=== PATIENT | female | born 1935 | race Caucasian/White ===

== ENCOUNTER 2019-05-01 14:44 | Inpatient (IN) | payer MEDICARE, OTHER ==
[~2019-05-01] VITALS: Ht 165.1 cm; Wt 83.0 kg
[2019-05-01] MEDS ORDERED: MIRALAX17 GM PO ×2 (14:56→15:51)
[2019-05-01] MEDS ORDERED: VITAMIN D34000 UNIT PO (14:58)
[2019-05-01] MEDS ORDERED: OMEPRAZOLE MAGN20 MG PO (14:58)
[2019-05-01] MEDS ORDERED: MIDODRINE HCL5 M1 PO (15:34)
[2019-05-01] MEDS ORDERED: ZOLOFT100 MG PO (15:36)
[2019-05-01] MEDS ORDERED: FLORINEF PO (15:38)
[2019-05-01] MEDS ORDERED: Oscal,Oyster S500 MG PO (15:38)
[2019-05-01] MEDS ORDERED: KEPPRA250 MG PO (15:39)
[2019-05-01] MEDS ORDERED: RISPERIDONE2 M2 PO (15:40)
[2019-05-01] MEDS ORDERED: ARICEPT10 M1 PO (15:43)
[2019-05-01] MEDS ORDERED: Nystatin Cream15 GM T (15:47)
[2019-05-01] MEDS ORDERED: POTASSIUM CHLO10 ME4 PO (15:48)
[2019-05-01] MEDS ORDERED: ASPIR LOW81 MG PO (15:48)
[2019-05-01] MEDS ORDERED: COUMADIN2 M1 PO (15:50)
[2019-05-01] MEDS ORDERED: LIPITOR10 MG PO (15:50)
[2019-05-01 21:30] VITALS: BP 146/72
--- NOTE | 2019-05-01 21:30 | NUR ---
a 83 year old F admitted via stretcher from the [facility] EMERGENCY DEPARTMENT as a voluntary ADMISSION PER POA, DOMINGO MICHAUD Arrived on unit at 2100. ALLERGIES: IVP DYE, LATEX,TOFRANIL,PCN. Vital signs are: [id number] 146/72. VERBAL CONSENT FOR ALL ADMISSION FORMS WAS RECEIVED PRIOR TO ADMISSION FROM [facility] Authorization For The Release of Medical Information, Clothing List, Consent to Voluntary Admission and Hospitalization, Consent and Release Forms/Receipt of Rights, Acknowledgement of Advance Directive Information, Behavioral Health Consent Form, and Informed Consent of Medications. Admitted under the services of Dr. JESUS SALEH,[facility]. A search was conducted and hazardous articles were removed. Client was oriented to the unit. TATIANA SANDHU
[2019-05-01 21:41] VITALS: BP 146/72
--- NOTE | 2019-05-02 00:01 | NUR ---
DR JOSHUA NOTIFIED OF MEDICAL CONSULT & MED REQ IS READY FOR REVIEW. SHE STATED TO PUT CONSULT UNDER DR DE LA ROSA.
--- NOTE | 2019-05-02 00:12 | NUR ---
DR SEARS ON UNIT TO SEE PT FOR MEDICAL CONSULT.
[2019-05-02 00:50] LABS: CREATININE 1.4 mg/dL (0.55-1.02); POTASSIUM 4.1 mmol/L (3.5-5.1)
--- NOTE | 2019-05-02 00:57 | NUR ---
24 HR chart check completed.
--- NOTE | 2019-05-02 05:04 | NUR ---
PT HAS BEEN SLEEPING QUIETLY PAST 2314.
[2019-05-02 07:20] LABS: BASO % 0.6 % (0.0-1.0); EOS # 0.2 10*3/uL (0.0-0.4); EOS % 2.5 % (1.0-4.0); HEMATOCRIT 38.9 % (37.0-47.0); HEMOGLOBIN 12.4 g/dl (12.0-16.0); LYMPH % 27.1 % (27.0-41.0); MEAN CELL VOLUME 97.5 fl (81.0-99.0); MEAN CORPUSCULAR HGB 31.1 pg (27.0-31.0); MEAN CORPUSCULAR HGB CONC 31.9 g/dl (33.0-37.0); MEAN PLATELET VOLUME 8.8 fl (9.6-12.3); MONO # 0.5 10*3/uL (0.1-1.0); MONO % 6.5 % (3.0-9.0); NEUT # 4.6 10*3/uL (2.3-7.9); NEUT % 62.9 % (47.0-73.0); PLATELET COUNT AUTOMATED 249 10*3/uL (130-400); RED BLOOD COUNT 3.99 10*6/uL (4.10-5.10); RED CELL DISTRI WIDTH 13.6 % (0-14.5); WHITE BLOOD COUNT 7.3 10*3/uL (4.8-10.8)
[2019-05-02 07:33] LABS: CREATININE 1.4 mg/dL (0.55-1.02); TOTAL PROTEIN 6.3 gm/dL (6.4-8.2)
[2019-05-02 07:40] LABS: THYROID STIM HORMONE (HS) 6.27 uIU/ml (0.358-4.75)
[2019-05-02 07:42] LABS: INTERNATIONAL NORM RATIO 6.4 (2.0-3.5)
--- NOTE | 2019-05-02 07:45 | NUR ---
CRITICAL LAB RESULT - INR 6.4 - RECIEVED FROM LAB. READ BACK AND VERIFIED WITH PT'S DATE OF . CALL PLACED TO AND MADE AWARE. STATES WE WILL CONTINUE TO HOLD COUMADIN.
--- NOTE | 2019-05-02 07:46 | NUR ---
DAISY [id number] Please refer to the physician's history and physical for past medical history, comorbid conditions, and allergies. Diagnosis: SCHIZOAFFECTIVE DISORDER Kofi Score: 13,MODERATE RISK WOUND DESCRIPTIONS: Wound Number: 1 red blanchable area noted to left breast measuring 0.5cm x 4.5cm x <0.1cm. Right breast measuring 0.5cm x 6.5cm x < 0.1cm. No musty odor noted at time of assessment. Patient unable to state how this happened. Patient eyes were rolling in the back of her head at time of assessment. This nurse notified nurse caring for patient at this time. Patient did stated to me that she was cold and tired before eye movements were noted. Surface the patient is resting on: Proform SKIN PREVENTION RECOMMENDATION: 1. Pressure redistribution support surface as appropriate 2. Elevate heels 3. Remove boots/TEDS every shift and reapply 4. Head of bed 30 degrees as tolerated 5. Assess nutrition and hydration 6. Manage moisture 7. Avoid the use of containment devices while in bed 8. Use absorptive products on surfaces limit layers of linens on bed 9. Turn and reposition every 1-2 hours in bed and every 1 hour in chair as tolerated 10. Weight shifts every 15 minutes while up in chair 11. Offloading with pillows or device to keep heels elevated off bed 12. Monitor skin at least every shift 13. Inspect under medical devices twice a day WOUND TREATMENT RECOMMENDATIONS: Cleanse bilateral breast with soap and water pat area dry then apply nystatin powder every 12 hours. D/C nystatin cream.
[2019-05-02 08:00] VITALS: BP 144/88; BP 159/83
--- NOTE | 2019-05-02 08:00 | NUR ---
CALL PLACED TO KEREN GARNER REGARDING DNR PAPERWORK. STATES THE DAUGHTER HAS SIGNED ONE, WAITING FOR PHYSICIAN TO SIGN THEN WILL FAX TO US. PROVIDED FAX NUMBER TO UNIT. AWAITING RECEIPT OF FAX.
--- NOTE | 2019-05-02 08:54 | NUR ---
PT RESTING IN BED WITH EYES CLOSED. RESPS EASY AND EVEN ON ROOM AIR. AROUSES EASILY TO VERBAL STIMULI. STATES "I'M SLEEPING". [facility] AT [facility].
[2019-05-02 09:07] LABS: VITAMIN D, 25-HYDROXY 64.3 ng/mL (30-100)
--- NOTE | 2019-05-02 09:22 | NUR ---
CALL PLACED TO PT'S DPOAH ELISSA GA TO VERIFY PT'S CODE STATUS. DISCUSSED DNRCCA VS DNRCC. DPOAH VOICES DESIRE FOR PT TO BE COMFORT CARE ONLY. CONVERSATION WITNESSED BY 2ND RN DAVID. [place] DNRCC FORM FILLED OUT WITNESSED BY 2ND RN.
[2019-05-02] MEDS ORDERED: MACROBID100 M1 PO (09:26)
--- NOTE | 2019-05-02 09:29 | NUR ---
Dr. Taylor notified of wound care recommendations.
--- NOTE | 2019-05-02 10:05 | NUR ---
Spoke with Gilberto Wintres at [facility]. Pt. is a Shelter Resident at the Assisted Living and can return at discharge. Gilberto states that point of contact is Idania Mcgregor [phone] and fax number [phone] for updates. Facility will provide transportation at discharge.
--- NOTE | 2019-05-02 10:14 | NUR ---
, AND ON UNIT TO SEE PT AT THIS TIME. DNRCC SIGNED BY PHYSICIAN. DISCUSSED DIET ORDER, DIET UPDATED BY . DISCUSSED ANTIBIOTIC NOT REORDERED WAS ORDERED AT [facility], ATB CONTINUED BY .
--- NOTE | 2019-05-02 10:55 | NUR ---
Call placed to pt's facility, [facility], spoke to pt's nurse Idania. Pt is well known to Idania as she has been there and taking care of her for several years. First confirmed pt's diet: pt is a regular diet, regular texture, thin liquids at facility. Nurse reports pt has recently been stating that she feels like some things are hard to swallow but they are unsure if this is true or if it is a delusion as she has not actually been observed by staff to be having any difficulty swallowing. Nurse also provided some additional information regarding pt: states that Cande has been on the assisted living wing of their facility for approximately 5 years, prior to that she had been living there on an independent living wing for at least 5 years prior to that. Idania states Cande has had a long history of psych issues and has had previous psych admissions dating as far back as age 19, as well as a hx of recieving ECT therapy. States pt is terrified of ever having to recieve ECT again. Nurse states recently pt has become more depressed, stating she only wants to stay in bed and sleep. Pt has also recently been fixated on the belief that she is and giving . Precious states pt has not ambulated independently for some time, but at baseline pt can self propel in w/c and transfer with 1 assist. Nurse states she is afriad of falling and has many other fears she gets fixated on. Idania states the pt's daughter has relayed to them that May has had many "unrealistic fears" all throughout her life. Nurse states that May refuses to brush her teeth for fear of the toothpaste causing cancer and that recently pt had touched her hand to her foot and then her mouth and became fearful that this would cause her to get cancer as well. They state she had a "break down" a few years ago and was hospitalized in a psychiatric facility in [place] for "months". Above information shared with social security specialist. Diet order updated, no meat and soft to chew foods per pt preference as she stated to this RN "I don't like meat". pt also told this RN she prefers soft foods. Speech eval ordered d/t reports of difficulty swallowing.
--- NOTE | 2019-05-02 11:41 | NUR ---
AM GROUP PT DID NOT ATTEND MORNING GROUP THERAPY. PT WAS A LATE ADMIT LAST NIGHT AND WAS STILL SLEEPING.
--- NOTE | 2019-05-02 12:17 | NUR ---
SPOKE WITH , DR STATES TO STRAIGHT CATH PT FOR URINALYSIS IF PT UNABLE TO PROVIDE CLEAN CATCH. WILL ATTEMPT AFTER LUNCH.
--- NOTE | 2019-05-02 13:22 | NUR ---
PT INCONTINENT OF URINE. URINALYSIS OBTAINED AT THIS TIME VIA STRAIGHT CATH PROCEDURE. STERILE TECHNIQUE UTILIZED. APPROX 600ML CLEAR YELLOW URINE OBTAINED. URINE SAMPLE LABELED AND SENT TO LAB VIA PHARMACY TUBE SYSTEM.
--- NOTE | 2019-05-02 13:22 | NUR ---
PHYSICAL THERAPY Screen recieved per intake notes pt is a custodial care resident at assisted living facility. Per notes has not amb independently in a long time primary mobility is w/c of which she self propels and is an assist x 1 to transfer. Spoke with [facility] nurse Steph regarding above, at present time pt is very lethargic not appropriate for activity. Ed nurse to cont to assess once pt's cognitive status improves and if from a decline in baseline as per above to consult PT. Jaylyn Flores PT
--- NOTE | 2019-05-02 14:47 | NUR ---
SPEECH THERAPY Orders received for bedside swallowing evaluation due to patient reports of difficulty swallowing and occassional coughing. Patient is a fpc resident of [facility] and arrived to [facility] from [facility]. Patient has medical history s/f schizoaffective disorder, anxiety, CVA, dementia, depression, GERD, HTN, CKD stage 3, and recurring falls. At patient's facility, she is on a regular diet with thin liquids. Per chart review, patient recently stated she feels some things are hard to swallow. She additionally reported preference of soft to chew foods and no meat. Multiple attempts to evaluate patient were made this afternoon, however patient reporting she did not wish to eat at the moment. Patient was interviewed at bedside, and endorsed occassional difficulty with swallowing solid food items, stating that they get stuck at times, indicating the area below thyroid cartilage. She additionally reported she coughs up small pieces of food at times, and that liquids help to reduce sticking sensation. Patient was pleasant and answered questions appropriately, however she appeared lethargic. Patient told clinican it was "an awkward time right now" when encouragement provided by self and nursing staff to participate in swallowing evaluation. Not able to evaluate patient's oropharyngeal swallow mechanism at this time. Will attempt at later time/date as appropriate. Thank you for your consultation. Natasha Velasco MA [facility] [employer] PRO[employer] MANAGER
[2019-05-02 14:57] LABS: BILIRUBIN NEGATIVE (NEGATIVE); BLOOD 2+ (NEGATIVE); CLARITY CLEAR (CLEAR); COLOR YELLOW (YELLOW); GLUCOSE NEGATIVE (NEGATIVE); KETONE 1+ (NEGATIVE); LEUKO ESTERASE NEGATIVE (NEGATIVE); NITRITE NEGATIVE (NEGATIVE); SPECIFIC GRAVITY 1.015 (1.005-1.030); UROBILINOGEN 0.2 E.U./dl (0.2-1.0)
[2019-05-02 14:58] LABS: BACTERIA TRACE; MUCOUS 3+; WBC 0-2 wbc/hpf (0-5)
--- NOTE | 2019-05-02 15:27 | NUR ---
Patient slept most of the day. When awake, pt was not willing to speak to this chief underwriter. Information for assessment was gathered from chart review and RN report. Left a voicemail for pt's daughter/DPOAHC Steph Terry requesting a return call. Will plan to meet with pt at another time.
--- NOTE | 2019-05-02 15:57 | NUR ---
P- PT NAPPING A MAJORITY OF THE SHIFT. EASILY AROUSABLE VIA VERBAL/TACTILE STIMULI. PT GUARDED, ISOLATIVE, MULTIPLE ATTEMPTS BY STAFF TO ENGAGE PT IN CONVERSATION OR ACTIVITY HAVE BEEN UNSUCCESSFUL. POOR PO INTAKE FOR MEALS THIS SHIFT. I- ORIENTATION, MOOD AND BEHAVIOR ASSESSED. ASSESSED PT FOR SI/HI, INTENT OR PLAN. ASSESSED PT FOR S/S HALLUCINATIONS, PARANOIA AND/OR DELUSIONS. MEDICATIONS ADMINISTERED PER PHYSICIAN'S ORDERS. ASSISTANCE WITH ADL CARE PROVIDED NEEDED. ENCOURAGED PT TO ATTEND AND PARTICIPATE IN GAMING MILIEU GROUPS AND ACTIVITIES. R- PT IS ALERT AND ORIENTED TO PERSON ONLY, OTHERWISE CONFUSED. MEMORY GAPS NOTED. RESPS EASY AND EVEN ON ROOM AIR. MOOD APPEARS DEPRESSED WITH FLAT AFFECT. SPEECH IS SOFT, COHERENT, ABLE TO ANSWER QUESTIONS WITHOUT DIFFICULTY AND MAKES NEEDS KNOWN. PT DENIES SI/HI, INTENT OR PLAN. PT DENIES HALLUCINATIONS, NO RESPONSE TO INTERNAL STIMULI NOTED. NO PARANOIA NOTED. PT HAS NOT VOICED ANY DELUSIONAL THOUGHTS THIS SHIFT. PT HAS BEEN CALM, PLEASANT AND COOPERATIVE WITH ALL AREAS OF CARE. MED COMPLIANT WITHOUT DIFFICULTY. PT HAS REFUSED BREAKFAST, TOOK ONLY A FEW BITES OF PUDDING FOR LUNCH. ALL FOOD OPTIONS OFFERED TO PT PT STATES "NO. I DON'T LIKE THAT". PO FLUIDS ENCOURAGED. PT DECLINED SPEECH EVALUATION DESPITE 2 ATTEMPTS BY SPEECH THERAPIST. PT STATES "NOW IS REALLY AN AKWARD TIME". PT MORE AWAKE THE DAY PROGRESSES, HOWEVER, PT CONTINUES TO DECLINE TO ENGAGE IN CONVERSATION WITH STAFF OUTSIDE OF SHORT RESPONSES. NO DISTRESS NOTED. P- PLAN TO CONTINUE CURRENT TREATMENT, CONTINUE TO MONITOR MOOD AND BEHAVIORS, PROVIDE APPROPRIATE REORIENTATION, REDIRECTION AND 1:1 NEEDED. CONTINUE TO ENCOURAGE MEDICATION COMPLIANCE WELL GROUP ATTENDANCE AND PARTICIPATION.
--- NOTE | 2019-05-02 16:50 | NUR ---
CALL PLACED TO REGARDING BP AT THIS TIME 150/92 HR 80, PT DUE TO RECIEVE MIDODRINE. STATES TO HOLD THIS DOSE.
[2019-05-02 16:55] VITALS: BP 150/92
--- NOTE | 2019-05-02 17:36 | NUR ---
PRIOR TO DINNER PT RANG CALL LIGHT. THIS RN AND MHW TO PT'S ROOM. PT STATES "I HAVE TO GO TO THE BATHROOM REAL REAL BAD". THIS RN AND MHW ASSISTED PT IN AMBULATING FROM BED TO TOILET, HEAVY 2 ASSIST PROVIDED FOR AMBULATION. PT CONTINENT AT THIS TIME OF URINE AND XLARGE BM. PT IS SITTING ON TOILET PT STATES TO THIS RN, "SO, DID I GIVE TODAY?" PROVIDED PT WITH REORIENTATION AND PRESENTED REALITY. PT ACCEPTS REALITY AND STATES "OH YEAH, I GUESS MY BABY DAYS ARE OVER. MY MIND KEEPS PLAYING TRICKS ON ME, AT LEAST THATS WHAT THE NURSES IN [place] SAID". PT CALM AT THIS TIME. PT ASKS "IS IT TIME FOR BREAKFAST?" REORIENTED PT THAT IT WAS DINNER TIME. PT THEN AMBULATED WITH HEAVY 2 ASSIST TO W/C AND TAKEN TO DINING ROOM FOR DINNER. PT PROVIDED WITH DINNER TRAY TO WHICH SHE STATES "THIS IS A REAL HEAVY BREAKFAST, I CAN'T EAT ALL THIS!" AGAIN ORIENTED IT WAS DINNER TIME, NOT BREAKFAST AND THAT PT HAD BEEN SLEEPING ON AND OFF A MAJORITY OF THE DAY. ENCOURAGED PT TO EAT WHAT SHE COULD. PT IS AWARE SHE IS IN THE HOSPITAL, ASKED WHEN SHE WOULD SEE THE DOCTOR AGAIN. PT ATE 15% OF DINNER. PO FLUIDS ENCOURAGED. PT TOOK 120CC WATER WITH EVENING MED PASS. PT ASKED TO RECLINE IN GERICHAIR, PT RECLINED AND WARM BLANKET PROVIDED. PT REMAINS IN DAY ROOM AT THIS TIME RESTING QUIETLY. NO DISTRESS NOTED.
--- NOTE | 2019-05-02 18:05 | NUR ---
SHIFT CHART CHECK COMPLETED.
[2019-05-02 19:36] VITALS: BP 139/73
--- NOTE | 2019-05-02 20:47 | NUR ---
24 HR chart check completed.
--- NOTE | 2019-05-02 22:13 | NUR ---
P-DEPRESSED, CONFUSION I-ENCOURAGE VENTILATION OF FEELIINGS & PROVIDE EMOTIONAL SUPPORT, ASSESS ORIENTATION, ADMINSITER MEDICATIONS, NOMITOR SLEEP. ASSIST WITH ADLS R-PT SAT IN THE DINING ROOM IN A ROCIO CHAIR & ATE SNACK INDEPENDENTLY. DEPRESSED MOOD WITH FLAT AFFECT. DOES STATE THAT SHE IS DEPRESSED. ALERT TO PERSON & NAME OF PRESIDENT. STATED THE YEAR IS 2057. SHORT TERM & PENITENTIARY MEMORY DEFICITS. STATED THAT SHE KNOWS SHE IS NOT . "HOW CAN THAT BE. I HAVNT BEEN WITH A MAN FOR 18 YEARS. BUT I AM A LITTLE CONFUSED TO WHY I THOUGHT THAT." REASSURRANCE PROVIDED. COMPLIANT TAKING MEDICATIONS CRUSHED & MIXED IN PUDDING. REQUIRES 2 STAFF ASSISTS FOR TRANSFERS & ADLS. P-CONTINUE TO MONITOR & PROVIDE PHYSICAL ASSISTANCE & EMOTIONAL SUPPORT NEEDED.
--- NOTE | 2019-05-03 04:29 | NUR ---
PT HAS RESTED QUIETLY IN BED SLEEPING FOR APPROX 5 HOURS WITH INTERMITTENT AWAKENINGS.
[2019-05-03 06:59] VITALS: BP 154/76
--- NOTE | 2019-05-03 07:00 | NUR ---
[facility]. UPDATE GIVEN.
[2019-05-03 09:32] VITALS: BP 154/76
--- NOTE | 2019-05-03 10:33 | NUR ---
AND ON UNIT TO SEE PT AT THIS TIME. MADE AWARE OF INR 3.0, MADE AWARE OF URINE CULTURE INDICATES NO BACTERIAL GROWTH, ALSO REVIEWED BLOOD PRESSURES SINCE ADMISSION. STATES OK TO CONTINUE PT'S MEDICATIONS: FLORINEF AND MIDODRINE ORDERED. ALSO REQUESTS THIS RN CONTACT [facility] AND ATTEMPT TO OBTAIN URINE CULTURE THAT WAS DONE IN THEIR ER PRIOR TO PT'S ADMISSION TO OUR UNIT.
--- NOTE | 2019-05-03 10:39 | NUR ---
CALL PLACED TO [facility], SPOKE TO ALEXYS IN THE LAB, REQUESTED URINE CULTURE RESULT, ALEXYS STATES "IT LOOKS LIKE IT'S STILL PENDING BUT I'LL SEND YOU WHAT I HAVE". FAX NUMBER TO UNIT PROVIDED. AWAITING FAX AT THIS TIME.
--- NOTE | 2019-05-03 11:00 | NUR ---
RECIEVED FAX FROM [facility], RESULT OF URINE CULTURE CALLED TO . PHONES UNIT BACK AND STATES THEY WILL D/C MACROBID.
--- NOTE | 2019-05-03 11:59 | NUR ---
AM GROUP/BOLIVIAN NEW YEAR PT IN ATTENDANCE AND PARTICIPATED TO BEST OF ABILITY. PT INSISTS SHE IS AND IS ABOUT TO DELIVER A BABY. REDIRECTION WORKS AT TIMES BUT PT BEGINS TALKING ABOUT BEING AGAIN. PT DID WORK ON A BOLIVIAN NEW COLORING PAGE AND EXPRESSED INTEREST IN HER INDIVIDUAL BOLIVIAN ZODIAC. PT WILL CONTINUE TO ATTEND AND PARTICIPATE IN FUTURE GROUP SESSIONS TO THE BEST OF PT ABILITY.
--- NOTE | 2019-05-03 13:46 | NUR ---
P- DEPRESSED MOOD, FLAT AFFECT, PERIODS OF INCREASED ANXIETY AND RESTLESSNESS, DELUSIONAL THOUGHT PROCESSES, SOMATIC COMPLAINTS I- ORIENTATION, MOOD AND BEHAVIORS ASSESSED. ASSESSED PT FOR SI/HI, INTENT OR PLAN. ASSESSED PT FOR S/S HALLUCINATIONS, PARANOIA AND/OR DELUSIONS. MEDICATIONS ADMINISTERED PER PHYSICIAN'S ORDERS. ASSISTANCE WITH ADL CARE PROVIDED NEEDED. ENCOURAGED PT TO ATTEND AND PARTICIPATE IN GAMING MILIEU GROUPS AND ACTIVITIES. R- PT IS ALERT AND ORIENTED TO PERSON, APPROXIMATE PLACE AND TIME, NOT ORIENTED TO SITUATION. PERIODS OF CONFUSION AND ST MEMORY GAPS NOTED. PT STATES SHE IS IN THE HOSPITAL, UNABLE TO STATE EXACTLY WHICH ONE, PT STATES "[place], MAYBE?". PT STATES THE YEAR "2009". PT REPORTS FEELING DEPRESSED, MOOD DOES PRESENT DEPRESSED WITH FLAT AFFECT. PT HAS PERIODS OF INCREASED ANXIETY AND RESTLESSNESS AT TIMES. PT CONTINUES TO VOICE DELUSIONAL THOUGHTS RELATED TO HER BELIEF THAT SHE IS AND DUE TO DELIVER A BABY SOON. REALITY HAS BEEN PRESENTED TO PT MULTIPLE TIMES THIS SHIFT IN REGARD TO THIS DELUSION. AFTER REALITY WAS PRESENTED ONE TIME THIS DATE PT STATES TO THIS NURSE "OH YEAH. YOU'RE RIGHT. I'M NOT . THANK YOU FOR REMINDING ME". HOWEVER, PT CONTINUES TO KEEP ASKING ABOUT THE AND FREQUENTLY. PT ALSO VOICES MULTIPLE VARIOUS SOMATIC COMPLAINTS, PT BECAME FIXATED THIS MORNING ON THE WAISTBAND OF HER PANTS BEING TOO TIGHT WHICH WAS SQUEEZING HER ESOPHAGUS. PT DISPLAYING NO S/S RESPIRATORY DISTRESS. OXYGENATION 97% ON ROOM WITH, RESPS EASY AND EVEN ON ROOM AIR. PANTS WERE CHANGED TO A LOOSER FITTING STYLE. PT THEN BEGAN CHANTING SOFTLY "PLEASE DR. MCCALLUM, PLEASE DR. MCCALLUM, SHOW ME HOW TO LOOSEN THEM NOW. PLEASE DR. MCCALLUM, PLEASE DR. MCCALLUM, SHOW ME HOW TO LOOSEN THEM NOW". PT REPEATED THIS PHRASE OVER AND OVER AGAIN FOR APPROXIMATELY 10 MINUTES. EVENTUALLY STAFF WAS ABLE TO DISTRACT PT AND ENGAGE HER IN A GROUP ACTIVITY DURING WHICH TIME SHE COLORED A PICTURE. PT DENIES SI/HI, INTENT OR PLAN. PT DENIES HALLUCINATIONS. NO RESPONSE TO INTERNAL STIMULI NOTED. PT IS MED COMPLIANT WITHOUT DIFFICULTY. NO ACUTE DISTRESS NOTED. PT RESTING QUIETLY RECLINED IN CHAIR AT THIS TIME PER HER REQUEST. P- PLAN TO CONTINUE CURRENT TREATMENT, CONTINUE TO MONITOR MOOD AND BEHAVIORS, PROVIDE APPROPRIATE REORIENTATION, REDIRECTION AND 1:1 NEEDED. CONTINUE TO ENCOURAGE MEDICATION COMPLIANCE WELL GROUP ATTENDANCE AND PARTICIPATION.
[2019-05-03 14:32] LABS: INTERNATIONAL NORM RATIO 2.7 (2.0-3.5)
--- NOTE | 2019-05-03 14:50 | NUR ---
NOTIFIED OF PT/INR RESULT. STATES SHE WILL DISCUSS WITH .
--- NOTE | 2019-05-03 15:51 | NUR ---
PM GROUP/ART/MUSIC PT IN ATTENDANCE BUT CHOOSES NOT TO PARTICIPATE STATING "I'VE DONE ENOUGH PAINTING AND CRAFTS" THIS [facility] OFFERS OTHER ACTIVITY'S BUT PT STATES "I JUST WANT TO GO HOME". PT MOVED OVER TO TABLE WITH THIS STAFF AND A PEER AND PT IS ABLE TO REMINISCE ABOUT FAVORITE HOLIDAYS, COLORS, ETC. PT EXPRESSES NO A.V. HALLUCINATIONS AT THIS TIME. PT WILL OCNITNUE OT ATTEND AN DPARTICIPATE IN FUTURE GROUP SESSIONS TO BEST OF PT ABILITY.
[2019-05-03 16:43] VITALS: BP 148/86
--- NOTE | 2019-05-03 16:43 | NUR ---
CALL PLACED TO MADE AWARE OF BP 148/86 AT THIS TIME. STATES OK TO GIVE FLORINEF AND MIDODRINE.
--- NOTE | 2019-05-03 17:45 | NUR ---
SHIFT CHART CHECK COMPLETED.
--- NOTE | 2019-05-03 18:05 | NUR ---
PT UP TO NURSE'S STATION, VOICING PARANOID DELUSIONS, PT STATES "THEY TOLD ME I'M SUPPOSED TO HAVE AN XRAY DONE TOMORROW TO CHECK MY HEAD. CAN YOU CHECK IT AND MAKE SURE I'M NOT GETTING ANY VALIDIUM WHEN I HAVE THE XRAY DONE? BECAUSE YOU KNOW, THAT VALIDIUM CAUSES BRAIN CANCER IN PEOPLE". ADVISED PT SHE WAS NOT SCHEDULED ANY XRAYS TO BE DONE, ONLY BLOODWORK TO ASSESS HER LEVELS FOR HER BLOOD THINNER. PT STATES "NO, I KNOW I'M HAVING AN XRAY DONE. CAN YOU PLEASE CALL DR. DALIA VOSS AT HOME AND ASK HIM ABOUT IT? I WON'T BE ABLE TO REST UNTIL YOU DO". ADVISED PT THERE IS NO DR.CARLOS VOSS ASSOCIATED WITH THIS HOSPITAL. PT STATES "WELL THATS OKAY. I'VE KNOWN HIM FOR YEARS. TELL HIM IT'S MAY JI CALLING". UNABLE TO REDIRECT OR REORIENT PT AT THIS TIME.
--- NOTE | 2019-05-03 21:25 | NUR ---
24 HR chart check completed.
--- NOTE | 2019-05-03 21:48 | NUR ---
P-DEPRESSED, CONFUSION, PARANOID DELUSIONS, INCREASED ANXIETY I-ENCOURAGE VENTILATION OF FEELIINGS & PROVIDE EMOTIONAL SUPPORT, ASSESS ORIENTATION, ADMINSITER MEDICATIONS, NOMITOR SLEEP. ASSIST WITH ADLS R-PT SAT IN THE DINING ROOM IN A ROCIO CHAIR & ATE SNACK. DEPRESSED MOOD WITH FLAT AFFECT. CONTINUES TO STATE THAT SHE IS DEPRESSED. INCREASED ANXIETY & VOICES PARANOID DELUSIONS STATING THAT SHE IS & GOING TO HAVE A BABY. UNRECEPTIVE TO PRESENTATION OF REALITY. MEDICATED WITH ATIVAN 1 MG PO @ 2113. ALERT TO PERSON & SOMEWHAT PLACE. SHORT TERM & SCRAP BALLER MEMORY DEFICITS. STATED THAT EVERYBODY KEEPS TELLING HER THAT SHE IS NOT BUT IS CONFUSED BECAUSE SHE BELIEVES SHE IS. TAKES MEDICATIONS CRUSHED & MIXED IN PUDDING. REQUIRES 2 STAFF ASSISTS FOR TRANSFERS & ADLS. INCONTINENT OF URINE. P-CONTINUE TO MONITOR & PROVIDE PHYSICAL ASSISTANCE & EMOTIONAL SUPPORT NEEDED.
--- NOTE | 2019-05-04 06:53 | NUR ---
ATIVAN HAS BEEN EFFECTIVE & PT HAS SLEPT PAST 2214.
[2019-05-04 08:04] LABS: INTERNATIONAL NORM RATIO 2.4 (2.0-3.5)
[2019-05-04 08:17] VITALS: BP 147/81
--- NOTE | 2019-05-04 08:50 | NUR ---
AND ON UNIT TO SEE PT AT THIS TIME. UPDATE GIVEN.
--- NOTE | 2019-05-04 18:01 | NUR ---
P- DEPRSSED MOOD, FLAT AFFECT, VOICE IS MONOTONE, PT CONTINUES TO VOICE DELUSIONS ABOUT BEING AND GIVING . INCREASED ANXIETY AT TIMES. I- ORIENTATION, MOOD AND BEHAVIORS ASSESSED. ASSESSED PT FOR SI/HI, INTENT OR PLAN. ASSESSED PT FOR S/S HALLUCINATIONS, PARANOIA AND/OR DELUSIONS. MEDICATIONS ADMINISTERED PER PHYSICIAN'S ORDERS. ASSISTANCE WITH ADL CARE PROVIDED NEEDED. ENCOURAGED PT TO ATTEND AND PARTICIPATE IN GAMING MILIEU GROUPS AND ACTIVITIES. R- PT IS ALERT AND ORIENTED TO PERSON, PLACE, APPROXIMATE TIME. NOT SITUATION. MEMORY GAPS NOTED. RESPS EASY AND EVEN ON ROOM AIR. MOOD IS DEPRESSED WITH FLAT AFFECT. MONOTONE VOICE. SPEECH IS SLOW, COHERENT, ABLE TO MAKE NEEDS KNOWN WITHOUT DIFFICULTY. PT DENIES SI/HI, INTENT OR PLAN. PT DENIES HALLUCINATIONS, NO RESPONSE TO INTERNAL STIMULI NOTED. PT SLEPT UNTIL APPROX 3PM THIS DATE, REFUSED AM MEDICATIONS WITH EXCEPTION OF KEPPRA AND EXELON PATCH. REFUSED 1PM KEPPRA. PT CONTINUES TO VOICE DELUSIONAL THOUGHTS ABOUT BEING AND ASKS STAFF TO ASSIST HER WITH GIVING TO A BABY. UNRECEPTIVE TO REALITY PRESENTATION THIS DATE. PT WITH PERIODS OF INCREASED ANXIETY AT TIMES, PT YELLS OUT IN A MONOTONE VOICE "NURSE, NURSE, NURSE" STAFF ATTEMPTS TO ASK PT WHAT SHE NEEDS SO SHE CAN BE ASSISTED, PT DOES NOT PROVIDE ANY SPECIFIC COMPLAINTS, PT STATES "I JUST CAN'T STAND IT ANY LONGER" BUT CONTINUES TO PROVIDE NONSPECIFIC COMPLAINTS DESPITE QUESTIONING BY STAFF. NO AGGRESSIVE BEHAVIORS NOTED. NO DISTRESS NOTED. P- PLAN TO CONTINUE CURRENT TREATMENT, CONTINUE TO MONITOR MOOD AND BEHAVIORS, PROVIDE APPROPRIATE REORIENTATION, REDIRECTION AND 1:1 NEEDED. CONTINUE TO ENCOURAGE MEDICATION COMPLIANCE WELL GROUP ATTENDANCE AND PARTICIPATION.
[2019-05-04 20:00] VITALS: BP 120/63
--- NOTE | 2019-05-04 20:43 | NUR ---
24 HR chart check completed.
--- NOTE | 2019-05-05 02:13 | NUR ---
P-DEPRESSED, CONFUSION, PARANOID DELUSIONS, INCREASED ANXIETY I-ENCOURAGE VENTILATION OF FEELIINGS & PROVIDE EMOTIONAL SUPPORT, ASSESS ORIENTATION, ADMINSITER MEDICATIONS, NOMITOR SLEEP. ASSIST WITH ADLS R-PT SAT IN THE DINING ROOM IN A ROCIO CHAIR & PICKED AT HER SNACK. DEPRESSED MOOD WITH FLAT AFFECT. CONTINUES TO STATE THAT SHE IS DEPRESSED. INCREASED ANXIETY & PARANOID STATEMENTS REGARDING BEING . UNRECEPTIVE TO REALITY PRESENTATION. ALERT TO PERSON. SHORT TERM & INTERMEDIATE MEMORY DEFICITS. TAKES MEDICATIONS CRUSHED & MIXED IN PUDDING. REQUIRES 2 STAFF ASSISTS FOR TRANSFERS & ADLS. INCONTINENT OF URINE. P-CONTINUE TO MONITOR & PROVIDE PHYSICAL ASSISTANCE & EMOTIONAL SUPPORT NEEDED.
--- NOTE | 2019-05-05 04:49 | NUR ---
Upon discharge recommend patient to follow up for wound care in outpatient setting continue current wound care orders at discharging facility.
--- NOTE | 2019-05-05 06:00 | NUR ---
PT HAS SLEPT THROUGHOUT THE NIGHT WITH A FEW INTERMITTENT AWAKENINGS FOR A TOTAL OF APPX 6 HOURS.
[2019-05-05 06:41] LABS: INTERNATIONAL NORM RATIO 2.6 (2.0-3.5)
[2019-05-05 07:43] VITALS: BP 116/65
--- NOTE | 2019-05-05 08:00 | NUR ---
Treatment Plan meeting was held with Dr. Langley, ANJELICA Rodney, RN, AT, COLLECTIONS REP-S and Repairer General in attendance. Plan for discharge at the end of the week. Pt. will return to [facility] at discharge.
--- NOTE | 2019-05-05 11:55 | NUR ---
NO AM GROUP THERAPY DUE TO NEW PT ASSESSMENTS
--- NOTE | 2019-05-05 12:35 | NUR ---
Spoke with Idania at [facility]. Advised of Possible dicharge at the end of the week. Clinical Updates faxed to Facility [phone].
--- NOTE | 2019-05-05 14:45 | NUR ---
SPEECH PATHOLOGY Patient was seen for clinical swallowing evaluation as per orders. She was seen during lunchtime meal. Patient was sitting in activity room with peers, feeding herself. During this encounter, patient only consumed soup with crackers and thin liquid. Patient displayed no overt difficulty with any item consumed. She ate slowly and in small bites/sips. Patient reported that at times she feels like food is sticking in her throat, but stated that it was not occurring at this time. Patient was encouraged to alternate liquid and solid when this feeling of globus occurs. Recommend she remain on present diet with continued use of safe swallow precautions. Short term follow up is recommended to ensure safety of swallow through education and adherence to swallowing precautions. Refer to report in [email or web address] for further information. Thank you for this referral. HIRA VALDERRAMA MSCCC-RETAIL SOLAR ADVISOR
--- NOTE | 2019-05-05 15:37 | NUR ---
Patient requested to meet with this writer technical publications. Pt expressed concern that all orders state that pt is to have CTs with no contrast. Pt stated that the contrast causes brain cancer and she needs to know if she ever had contrast. Pt then spoke of a radiologist at [facility] and that she needed to speak to him. Redirected pt and informed pt that this writer technical publications would confirm that pt's chart at [facility] has this stipulation documented. Reviewed chart and spoke with RN. Confirmed with pt that all CTs at [facility] will be with no contrast for pt. Pt appeared satisfied.
--- NOTE | 2019-05-05 15:44 | NUR ---
PM GROUP PT ATTENDED AFTERNOON GROUP THERAPY AND PARTICIPATED BY SOCIALIZING AND DOING A JIG SAW PUZZLE. PT EXPRESSED NO A.V. HALLUCINATIONS WHILE IN GROUP.
[2019-05-05 16:16] VITALS: BP 120/68
--- NOTE | 2019-05-05 18:01 | NUR ---
pt remains delusional, stating to medical doctor that she is having " problems". pt presented with reality. pt receptive to reality for short period of time. pt then becomes fixated on other things. frequent redirection and reality presentation required. will continue to reorient and present reality as appropriate. will continue to encourage medication compliance. will continue to monitor q15 min per policy.
[2019-05-05 19:54] VITALS: BP 107/68
--- NOTE | 2019-05-05 20:56 | NUR ---
EVENING/LEISURE SKILLS PT IN ATTENDANCE BUT DID NOT PARTICIPATE. PT COMPLAINING ABOUT SHOULDER AND HAND PAIN. PT'S NURSE INFORMED. PT EXPRESSED NO A.V HALLUCINATIONS AT THIS TIME AND WILL CONTINUE TO ATTEND AND PARTICIPATE IN GROUP TO BEST OF PT ABILITY.
--- NOTE | 2019-05-06 08:00 | NUR ---
Treatment plan meeting was held with Dr. Langley, ANJELICA Rodney, RN, AT, CRYSTAL GRINDER-S and Welfare Administrator in attendance. Plan for discharge when Stable. Pt. will return to [facility] at Discharge.
[2019-05-06 08:23] VITALS: BP 114/65
--- NOTE | 2019-05-06 09:56 | NUR ---
SPEECH PATHOLOGY Treatment attempted this am during breakfast meal. Patient was in activity room, sleeping with her head on the table. She was awakened by clinician but stated she did not want to eat at this time. Encouragment was provided but not helpful. Will attempt again at a later time. HIRA VALDERRAMA MSCCC-RIG SUPERINTENDENT
--- NOTE | 2019-05-06 10:24 | NUR ---
DR GRIDER ON UNIT TO ASSESS PT, UPDATE PROVIDED.
--- NOTE | 2019-05-06 11:50 | NUR ---
AM GROUP PT WAS PRESENT FOR MORNING GROUP THERAPY BUT CHOSE NOT TO PARTICIPATE AT FIRST. WHEN GROUP WAS ALMOST OVER PT ASKED, "WHY AM I IN THIS ROOM, WHAT AM I SUPPOSED TO DO?" PT WAS ENCOURAGED TO JOIN PEERS AT THE TABLE AND SOCIALIZE. PT DID AND WAS CONTENT TO TALK WITH PEERS. PT EXPRESSED NO HALLUCINATIONS WHILE IN GROUP
--- NOTE | 2019-05-06 12:22 | NUR ---
SPEECH PATHOLOGY Patient was seen for treatment this pm during lunchtime meal. She was sitting upright in a wheelchair in activity room with peers. Tray set up was provided and she was able to feed herself. She consumed solid foods and thin liquid. Patient displayed good use of safety precautions such eating slowly and taking small bites/sips. She displayed no overt difficulty with any item consumed. Intake was good. Recommend she remain on present diet. Continue therapy plan short term to ensure safe swallowing of diet. HIRA VALDERRAMA MSCCC-POLICE COMMISSIONER
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
--- NOTE | 2019-05-06 18:02 | NUR ---
P: PT MOOD IS DEPRESSED. PT ISOALTIVE TO SELF AT TIMES THROUGHOUT THE DAY. PT VOICES FEARS OF FALLING. PT WAS OBSERVED TO BE PICKING UNSEEN OBJECTS OFF HER CLEAN LUNCH PLATE. I: PROVIDE EMOTIONAL SUPPORT AND 1:1 FOR PT TO FEELINGS, ENCOURAGE MED COMPLIANCE AND PROVIDE MED EDUCATION, ENCOURAGE GROUP PARTICIPATION AND SOCIALIZATION. PREOVIDE REASSURANCE THAT PT IS SAFE. RE-ORIENT AND PRESENT REALITY. R: PT ALERT TO PERSON, PLACE AND TIME. PT PLEASANT WITH THIS NURSE AND OBSERVED TO BE SOCIALIZING WITH PEERS THROUGHOUT THE DAY. PT RECEPTIVE TO ASSURANCE OF SAFETY AT TIMES. STAFF PROVIDED RE-ORIENTATION AND PRESENTATION OF RELAITY. PT MED COMPLIANT WITH MINIMAL DIFFICULTY, MED EDUCATION PROVIDED. PT REQUIRES A STEPHIE LIFT FOR TRANSFERS AT THIS TIME, UP TO A GERICHAIR D/T PT REFUSING TO BEAR WEIGHT. PT CONTINENT OF BOWEL AND BLADDER, EPISODES OF INCONTINENCE NOTED, CARE PROVIDED NEEDED. P: PROVIDE EMOTIONAL SUPPORT AND 1:1 FOR PT TO VOICE FEELINGS, ENCOURAGE MED COMPLIANCE AND PROVIDE MED EDUCATION, RE-ORIENT AND PRESENT REALITY, ENCOURAGE GROUP PARTICIPATION AND SOCIALIZATION, PROVIDE REASSURANCE OF SAFETY.
--- NOTE | 2019-05-06 19:55 | NUR ---
24 HR chart check completed.
[2019-05-06 20:00] VITALS: BP 110/75
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
--- NOTE | 2019-05-06 23:44 | NUR ---
P-DEPRESSED, CONFUSION, PARANOID DELUSIONS, INCREASED ANXIETY I-ENCOURAGE VENTILATION OF FEELINGS & PROVIDE EMOTIONAL SUPPORT, ASSESS ORIENTATION,. PRESENT REALITY, ADMINISTER MEDICATIONS, MONITOR SLEEP. ASSIST WITH ADLS R-PT SAT IN THE DINING ROOM IN A WHEEL CHAIR DURING ACTIVITIES GROUP & KEPT TO HERSELF. MILIEU CAME TO RN & STATED THAT PT HAS A HOLD OF THERAPIST SWEATER & WONT LET GO. ATTEMPTED TO REDIRECT PT & SHE WS LEANING FORWARD IN THE WHEELCHAIR & HAD BOTH HANDS PULLING TIGHTLY ON ACTIVITY THERAPIST SWEATER. PT WOULD NOT LET GO DESPITE REDIRECTION. PT STATED, "IF I FALL. IT'S GONNA BE YOUR FAULT. ALL OF YOU". PT WAS TAKEN OUT OF DINING ROOM AWAY FROM GROUP. STAFF HELD ON TO PT & WHEELCHAIR PT WAS REFUSING TO LET GO OF SWEATER. PT ASSISTED TO A ROCIO CHAIR TAKING 3 STEPS WITH 3 STAFF ASSISTS. ALERT TO PERSON ONLY PT WOULD NOT ANSWER ORIENTATION QUESTIONS. PT BECAME ACCUSATORY & DEFENSIVE RESPONDING WITH "WHERE DO YOU THINK I AM? YOU KNOW WHERE I AM. I'M NOT TELLING YOU. I DON'T HAVE TO". UNRECEPTIVE TO REASSURANCE & CONTINUED STATING, "YOUR ALL LYING. EVERYONE HERE IS GETTING FIRED. I'LL MAKE SURE OF IT. YOU ALL LIVE IN YOUR [facility]." 3 STAFF PRESENT PT MADE ACCUSATIONS. PT CONTINUED VOICING PARANOID STATEMENTS & EVEN STATED THAT SHE WANTS THE LIGHTS LEFT ON BECAUSE OF "THE MONSTERS UNDER THE BED". ALLOWED PT TO VENT & STAFF REMAINED SILENT. EVENTUALLY ASK PT IS SHE WAS READY TO TAKE HER MEDICATIONS & OFFERED THEM TO HER WHOLE OR CRUSHED & IN PUDDING. SHE REQUESTED CRUSHED & WAS COMPLIANT TAKING THEM. MEDICATIED WITH PRN VISTARIL 50 MG PO @ 2024. AFTER A WHILE, PT THANKED STAFF FOR LISTENING TO HER & WAS ASSISTED TO THE TOILET BUT DID NOT GO. 2 STAFF ASSIST TO BED. ALSO MEDICATED WITH MOM 30 CC PO @ 2158. PT WAS NOTED TO BE SLEEPING @ 2214. P-CONTINUE TO MONITOR & PROVIDE PHYSICAL & EMOTIONAL SUPPORT NEEDED.
--- NOTE | 2019-05-07 05:35 | NUR ---
PT HAS SLEPT PAST 2214
[2019-05-07 08:00] VITALS: BP 144/87
--- NOTE | 2019-05-07 08:00 | NUR ---
Treatment Plan meeting was held with Dr. Langley, ANJELICA Rodney, RN, AT, SETUP OPERATOR-S and Auto Machinist in attendance. Plan for discharge next week. Pt. will return to [facility] where she is a Longterm Care Resident.
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
--- NOTE | 2019-05-07 12:33 | NUR ---
STAFF RETURNED FROM TOILETING PT VIA 3 STAFF ASSIST AND PT CONTINUES TO STATE "I HAVE TO GO TO THE BATHROOM". STAFF PROVIDED REASSURANCE THAT SHE WAS JUST TOILETED PT STATED "WELL I WASNT AND I DONT REMEMBER ". PT REMAINS ON Q2 HOURS TOILETING SCHEDULE.
--- NOTE | 2019-05-07 12:45 | NUR ---
SPEECH PATHOLOGY Patient was seen for treatment this pm during lunchtime meal. At start of encounter patient stated that she could not eat and requested removal of tray table as it was pressing on her stomach. Clinician moved table farther out and patient reported that she felt better, then with encouragement she was able to continue eating. She consumed a sandwich, mashed potatoes and grape juice. Patient displayed no overt diffiuclty with any item. She had reported that food felt like it was sticking earlier but she thought it was due to the tray table pressing against her. She had no further c/o globus and displayed no cough, residue or wet vocal quality. Continue plan short term. HIRA VALDERRAMA MSCCC-CHILDREN'S INSTITUTION ATTENDANT
--- NOTE | 2019-05-07 14:00 | NUR ---
Spoke with Idania MAR at [facility]. Advised of plans to discharge next week. Clinical Updates faxed to Facility.
--- NOTE | 2019-05-07 15:41 | NUR ---
P: PT PARANOID AND FIXATED ON CT CONTRAST STATING "YOU KNOW THAT STUFF THEY GIVE YOU FOR THE XRAYS, I HOPE THEY DONT GIVE IT TO ME, I HAVE ALLERGIES." PT CONTINUOUSLY ASKING TO GO HOME.PT MOOD IS ANXIOUS. PT ARGUEMENTATIVE WITH STAFF. I: PROVIDE EMOTIONAL SUPPORT AND 1:1 FOR PT TO VOICE FEELINGS, REASSURE PT THAT SHE IS NOT ORDERED ANY XRAYS OR CT SCANS AND IF SHE IS THEY WILL NOT GIVE THE CONTRAST D/T LISTED ALLERGY, ENCOURAGE MED COMPLIANCE AND PROVIDE MED EDUCATION, ENCOURAGE GROUP PARTICIPATION AND SOCIALIZATION R: PT ALERT TO PERSON, PLACE AND TIME. PT MED COMPLIANT WITHOUT DIFFICULTY, MED EDUCATION PROVIDED. PT REMAINS FIXATED ON CT CONTRAST AT THIS TIME. PT CONTINUES TO ASK TO LEAVE. PT REMAINS INTERMITTENLTY ANXIOUS. PT UP TO A GERICHAIR TO PRMOTE PROPER POSITIONING. PT REQUIRES A STEPHIE LIFT FOR TRANFERS D/T REFUSING TO BEAR WEIGHT AT TIMES. PT CONTINENT OF BOWEL AND BLADDER, EPISODES OF INCONTINENCE NOTED, CARE PROVIDED NEEDED. P: MONITOR PT BEHAVIORS ON Q15 MIN SAFETY CHECKS, ENCOURAGE GROUP PARTICIAPTION AND SOCIALIZATION, CONTINUE TO PROVIDE REASSURANCE THAT PT WILL NOT RECEIVE CT CONTRAST, PROVIDE EMOTIONAL SUPPORT AND 1:1 FOR PT TO VOICE FEELINGS.
--- NOTE | 2019-05-07 15:45 | NUR ---
PM GROUP/WATERCOLORS AND MUSIC PT WAS PRESENT FOR AFTERNOON GROUP THERAPY RECLINED IN A ROCIO CHAIR SLEEPING. PT DID NOT WAKE DURING GROUP.
--- NOTE | 2019-05-07 16:15 | NUR ---
SPOKE WITH DR. OBYD, ADVSIED THAT PT HAS NOT VOIDED IN 12 HOURS AND HAS CONSUMED AROUND 600CC OF FLUIDS. PER DR. BOYD SHE WILL PLACE ORDERS.
--- NOTE | 2019-05-07 16:50 | NUR ---
PT ST CATHED FOR 350 CC DARK YELLOW URINE, UA COLLECTED AND SENT TO LAB. PT TOELRTED WITHOUT ISSUE.
[2019-05-07 17:15] LABS: BILIRUBIN NEGATIVE (NEGATIVE); BLOOD TRACE-INTACT (NEGATIVE); CLARITY CLEAR (CLEAR); COLOR YELLOW (YELLOW); GLUCOSE NEGATIVE (NEGATIVE); KETONE NEGATIVE (NEGATIVE); LEUKO ESTERASE 1+ (NEGATIVE); NITRITE NEGATIVE (NEGATIVE); UROBILINOGEN 0.2 E.U./dl (0.2-1.0)
[2019-05-07 17:16] LABS: BACTERIA TRACE
[2019-05-07 19:46] VITALS: BP 126/66
--- NOTE | 2019-05-08 05:37 | NUR ---
SLEPT PAST 2214
[2019-05-08 07:36] VITALS: BP 154/80
--- NOTE | 2019-05-08 08:00 | NUR ---
Treatment plan meeting was held with Dr. Langley, RN, AT and Instructor Nurse. Plan for discharge Early next week with return to [facility]. Advised Dr. Langley that Facility had requested that Physical Therapy Continue to work with patient due to decline. Pt. was transferring herself with 1 standby Assist to Her Wheelchair and Toilet at the Assisted Nursing Facility.
--- NOTE | 2019-05-08 11:51 | NUR ---
AM GROUP PT WAS PRESENT FOR MORNING GROUP THERAPY RECLINED IN A ROCIO CHAIR SLEEPING. PT DID NOT WAKE DURING GROUP.
--- NOTE | 2019-05-08 12:53 | NUR ---
PT ABLE TO ANSWER PERSON, PLACE, TIME, PRESIDENT QUESTIONS. CONFUSION NOTED AT TIMES. HOPELESS AND HELPLESS, DEPRESSED MOOD. NO HALLUCINATIONS OR DELUSIONS NTOED. PT HAS NOT MADE ANY ACCUSATIONS AT THIS TIME. 3 ASSIST DUE TO PAST ACCUSATIONS. MEDICATION COMPLIANT WITHOUT DIFFICULTY. UNABLE TO EDUCATE ON MEDICATIONS DUE TO CONFUSION. BEHAVIORS MONITORED WITH Q15 MINUTE SAFETY CHECKS. SEE [facility] FLOWSHEET FOR SPECIFIC MONITORING.
--- NOTE | 2019-05-08 14:16 | NUR ---
SPEECH PATHOLOGY Patient was seen for treatment this pm during lunchtime meal. Patient was in activity room with peers, and had just woken up. Staff reported that she did not eat any breakfast this am, sleeping through the meal. Patient was alert and cooperative this afternoon. Tray set up was provided by clinician and patient fed herself. She displayed no overt s/s aspiration with any food or liquid. She did require occasional cues to clear oral cavity between bites and take smaller bites. Recommend patient remain on regular diet and thin liquids, with supervision during meals to ensure safety and adherence to swallowing precautions. Continue plan short term. HIRA VALDERRAMA MSCCC-MEDICAL NUMERICAL CONTROL OPERATOR
--- NOTE | 2019-05-08 15:42 | NUR ---
PM GROUP PT DID NOT ATTEND AFTERNOON GROUP THERAPY. PT WAS IN BED RESTING.
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
--- NOTE | 2019-05-08 18:59 | NUR ---
PT REFUSED A HEAD AND NECK CT MULTIPLE TIMES. DR ARAMBULA UPDATED.
--- NOTE | 2019-05-08 19:42 | NUR ---
Called and notified Dr. Hutchinson regarding pt refusal of CT scans to head and neck and that CT wanted nursing to cancel scans since patient refused. Dr. Hutchinson said okay to cancel and document that patient refused.
[2019-05-08 19:58] VITALS: BP 144/80
--- NOTE | 2019-05-08 21:41 | NUR ---
Patient alert and oriented to person & place with confusion noted. Memory deficits noted. Mood depressed. Patient compliant with HS medications without any difficulty. Attempted to provide 1:1 for emotional support but patient refused. Attempted to redirect/reorient but patient not receptive at this time. Staff assist 2-3 due to patient being accusatory of staff. Plan to continue to encourage medication compliance. Also continue to provide emotional support and redirect/reorient when needed/appropriate. Will continue to monitor behaviors/moods. Q 15 minute safety checks continued and maintained. See [facility] flwosheet for further documentation.
--- NOTE | 2019-05-09 00:11 | NUR ---
24 HR chart check completed.
--- NOTE | 2019-05-09 00:44 | NUR ---
Patient intimidating and frightening roommate by saying "my sister is and laying under the bed. Patient placed in gerichair and taken down hallway to nurses' desk to be obaserved for moods/behaviors.
--- NOTE | 2019-05-09 05:23 | NUR ---
Patient slept approx. 2 hours throughout shift. Q 15 minute safety checks continued and maintained.
--- NOTE | 2019-05-09 06:05 | NUR ---
DAISY [id number] Please refer to the physician's history and physical for past medical history, comorbid conditions, and allergies. Diagnosis: SCHIZOAFFECTIVE DISORDER Kofi Score: 13,MODERATE RISK WOUND DESCRIPTIONS: Wound Number: Left breast pink at time of assessment, no open areas noted or drainage at time of assessment to left breast. Right breast pink at time of assessment, No open areas noted or drainage at time of assessment. No musty odor noted at time of assessment. Surface the patient is resting on: pallavi Diego Proform mattress SKIN PREVENTION RECOMMENDATION: 1. Pressure redistribution support surface as appropriate 2. Elevate heels 3. Remove boots/TEDS every shift and reapply 4. Head of bed 30 degrees as tolerated 5. Assess nutrition and hydration 6. Manage moisture 7. Avoid the use of containment devices while in bed 8. Use absorptive products on surfaces limit layers of linens on bed 9. Turn and reposition every 1-2 hours in bed and every 1 hour in chair as tolerated 10. Weight shifts every 15 minutes while up in chair 11. Offloading with pillows or device to keep heels elevated off bed 12. Monitor skin at least every shift 13. Inspect under medical devices twice a day WOUND TREATMENT RECOMMENDATIONS: nystatin powder is to stop on 05/09/19 no need for further treatment at this since.
[2019-05-09 08:00] VITALS: BP 111/82
--- NOTE | 2019-05-09 08:00 | NUR ---
PHYSICAL THERAPY Mary completed full report to follow pt moderate level of complexity 00202 recomen return to facility with follow therapy as appropriate pending progress. PT to work on strengthening, balance, transfers/standing tolerance and w/c mobility. Jaylyn Flores PT
--- NOTE | 2019-05-09 09:24 | NUR ---
SPEECH THERAPY Attempted to see patient at morning meal, however patient refusing, stating she "was having a baby." Attempted swallowing treatment at later time this am when patient was pleasant and cooperative throughout treatment. She was given a snack of sharon cracker and water. Patient took liquid via cup with no overt s/s of penetration or aspiration. She was cued and reminded to consume small, single sips. Anterior labial leakage was observed during sips of liquid. When consuming regular consistency, cues provided to altearnte between solid and liquids to help wash down food items. Patient additionally observed taking large bites of sharon cracker at time. Additional cuing provided to take small bites and clear what is in oral cavity before taking additinal bites. Patient agreed, and stated she does at times find herself with too big of a bite in her mouth. Additional education provided regarding choosing softer food items to assist in mastication. Patient demosntrating tolerance of least restrictive diet, however she required moderate verbal cuing for implementation of strategies today. Recommend patient continue with short term treatment for adherence of safe swallowing and compensatory strategies. Natasha Velasco MA CCC-MANAGER CRITICAL CARE UNIT
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
--- NOTE | 2019-05-09 14:27 | NUR ---
Clinical Updates faxed to [facility] Attn: Idania.
--- NOTE | 2019-05-09 14:41 | NUR ---
P: HALLUCINATIONS AND DELUSIONS, YELLING OUT,TEARFUL, DISTRUBIVE TO OTHER PATIENTS. AT BREAKFAST PATIENT IN DINING ROOM YELLING OUT "I'M AND GOING TO HAVE A BABY" I: PROVIDE ONE ON ONE FOR EMOTIONAL SUPPORT, REDIRECTION/ORIENTATION, CHANGE OF ENVIRONMENT WITH LOW STIMULI AND PROVIDING SPACE NEEDED. R: EFFECTIVE. PATIENT IS ALERT TO PERSON, PLACE AND TIME WITH CONFUSION . ABLE TO VOICE NEEDS. MODO IS DEPRESSED AND HOPELESS/HELPLESS. DENIES ANY HALLUCINATIONS, DELUSIONS, HI/SI. ENCOURAGED DEEP BREATHING PATIENT TAKING ABOUT BEING IN LABOR. MEDICATION COMPLAINT. Q 15 MINUTE SAFETY CHECKS. 2-3 PERSON ASSIST WITH ACTIVITIES OF DAILY LIVING, INCONTINENT OF BOWEL AND BLADDER. SET UP FOR MEALS, INTAKE ARE FAIR. WITH ADEQUATE FLUIDS. PATIENT UP IN WHEELCHAIR. ABLE TO SELF PROPEL ON UNIT. INTERACTIVE WITH NURSING STAFF AND OTHER PATIENTS. PARTICIPATED IN GROUP SESSION. P: CONTINUE TO MONITOR FOR HALLUCINATIONS, DELUSION. PROVIDE ONE ON ONE AND REDIRECTION NEEDED.
--- NOTE | 2019-05-09 15:48 | NUR ---
PM GROUP/MOVIE PT ATTENDED AFTERNOON GROUP THERAPY AND WAS FOCUSED ON THE MOVIE UNTIL 3PM WHEN SHE BECAME A DISRUPTION BY INSISTING THAT I CALL THE DOCTOR BECAUSE SHE WAS ABOUT TO HAVE HER BABY. PT COULD NOT BE REDIRECTED AND WAS REMOVED FROM THE DAYROOM SO THAT OTHERS COULD WATCH THE MOVIE
[2019-05-09 16:49] VITALS: BP 148/69
[2019-05-09 19:10] VITALS: BP 120/83
--- NOTE | 2019-05-09 23:58 | NUR ---
P: Refused medication, I: Redirect pt, reapproach several attempts, education of importance of medications R; Pt yelled at this nurse to quit being a pest, to leave her along. Pt stated this nurse was an idiot, and that it was pointless because she wasn't going to take it. p: pt was put into bed early prior to medication pass. pt now to remain up until medicaiton administration completed
--- NOTE | 2019-05-10 00:04 | NUR ---
Pt had no noted delusions, hallucinations this shift. Pt denies SI/HI, refused to communicate with this nurse. continue to monitor for behaviors, check q15min, monitor sleep pattern
--- NOTE | 2019-05-10 06:43 | NUR ---
PT WAS DRY THIS AM WITH HOC, SCANNED BLADDER [address] MATOS UPDATED, ENCOURAGE FLUIDS AT THIS TIME.
[2019-05-10 07:26] VITALS: BP 137/65
--- NOTE | 2019-05-10 09:13 | NUR ---
DR LOZADA ON UNIT TO ASSES PT. UPDATE PROVIDED.
--- NOTE | 2019-05-10 12:02 | NUR ---
AM GROUP/EXERCISE/MUSIC/LEISURE PT ATTENDED BUT UNABLE TO PARTICIPATE AT THIS TIME DUE TO SLEEPING. PT WOULD NOT WAKE FOR GROUP AT THIS TIME, BUT WILL CONTINUE TO ATTEND AND BE ENCOURAGED TO PARTICIPATE TO BEST OF PT ABILITY IN FUTURE GROUP SESSIONS.
--- NOTE | 2019-05-10 12:21 | NUR ---
PT REFUSED ALL MEDS AND ASSESSMENT. PT REFUSED TO TALK TO STAFF. DR LOZADA UPDATED ON LAST INR. NEW ORDER FOR INR TOMORROW AM. BEHAVIORS MONITORED WITH Q15 MINUTE SAFETY CHECKS. SEE [facility] FLOWSHEET FOR SPECIFIC MONITORING.
--- NOTE | 2019-05-10 16:01 | NUR ---
PM GROUP/MOVIE/LEISURE PT IN ATTENDNACE BUT SLEEEPING ON AND OFF AT THIS TIME. PT EXPRESSED NO HALLUCINATIONS AT THIS TIME AND WILL CONTINUE TO ATTEND AND PARTICIPATE IN FUTURE GROUP SESSIOSN TO BEST OF PT ABILITY.
[2019-05-10 20:26] VITALS: BP 119/65
--- NOTE | 2019-05-10 20:34 | NUR ---
24 HOUR CHART CHECK COMPLETED.
--- NOTE | 2019-05-10 22:30 | NUR ---
P-CONFUSED, SUSPICIOUS OF MEDICATIONS I-PRESENT REALITY AND REORIENT. PROVIDE 1:1 WITH THERAPEUTIC INTERVENTIONS. ENCOURAGE MEDICATION COMPLIANCE AND EDUCATE. MONITOR SLEEP. R-PT ALERT TO PERSON AND APPROX PLACE, CONFUSED. PT ANXIOUS WITH IRRITABILITY AT TIMES, BELIEVES SHE IS IN THE WRONG HOSP[facility] AND [facility], PT REDIRECTABLE WITH MINIMAL DIFFICULTY. PT ALSO SUSPICIOUS OF MEDICATIONS DURING HS PASS, STATING SHE WAS DEPRESSED BECAUSE THEY ARE GIVING HER MEDICATIONS WHEN SHE IS ALLERGIC TO IVP DYE, ALSO STATING "I TOLD I DIDNT LIKE THE SOUND OF NAMENDA SO I DONT KNOW WHY WANTS ME TO TAKE IT". PT UNRECEPTIVE TO MEDICATION EDUCATION, BECOMES ARGUMENTATIVE. PT MEDICATION COMPLIANT DESPITE OBJECTIONS STATING "IM GOING TO TALK TO TOMORROW". PT DENIES SI/HI, HALLUCINATIONS, AND PAIN. NO DELUSIONS NOTED. PT MOBILIZES SELF AROUND UNIT IN A WHEELCHAIR, ABLE TO MAKE NEEDS KNOWN, ASSIST X1. PT INCONTINENT AND CONTINENT OF BOWEL AND BLADDER, COMPLIANT WITH HOC. PT RESTING QUIETLY IN BED WITH EYES CLOSED, RESPIRATIONS EASY AND REGULAR. NO SIGNS OR SYMPTOMS OF DISTRESS NOTED. P-CONTINUE TO MONITOR MOOD AND BEHAVIORS. PROVIDE 1:1 WITH THERAPEUTIC INTERVENTIONS. ENCOURAGE MEDICATION COMPLIANCE AND EDUCATE. MAINTAIN Q 15 MIN CHECKS.
--- NOTE | 2019-05-11 05:48 | NUR ---
PATIENT OBSERVED ON Q 15 MIN CHECKS TO HAVE SLEPT APPROX 8 HOURS WITH NO AWAKENINGS OR SIGNS AND SYMPTOMS OF DISTRESS NOTED.
--- NOTE | 2019-05-11 06:10 | NUR ---
DENA ZAMUDIO CALLED AND UPDATED ABOUT PATIENT NOT VOIDING SINCE APPROX 5PM YESTERDAY AND PATIENT BLADDER SCANNED WITH TWO DIFFERENT RESULTS OF >400 AND 186 THIS AM. STATED TO GO AHEAD AND STRAIGHT CATH. NO OTHER ORDERS RECEIVED.
--- NOTE | 2019-05-11 06:36 | NUR ---
PATIENT STRAIGHT CATHED USING STERILE TECHNIQUE WITH A RESULT OF 200ML CLEAR YELLOW URINE. PATIENT TOLERATED PROCEDURE WELL.
[2019-05-11 07:07] LABS: INTERNATIONAL NORM RATIO 1.7 (2.0-3.5)
--- NOTE | 2019-05-11 08:00 | NUR ---
PT AWAKE, ALERT AND VERBAL. PLEASANT. RESPS EASY AND EVEN ON ROOM AIR. PT FEEDING SELF BREAKFAST IN DINING ROOM AT THE TABLE WITH PEERS. NO DISTRESS NOTED.
[2019-05-11 08:02] VITALS: BP 117/65
--- NOTE | 2019-05-11 08:25 | NUR ---
PT FINISHED BREAKFAST AND RETURNED TO BED TO REST PER PT REQUEST. BED ALARM ACTIVATED.
--- NOTE | 2019-05-11 10:11 | NUR ---
AND TEAM ON UNIT TO SEE PT AT THIS TIME. UPDATE GIVEN. MADE AWARE OF INR 1.7 TODAY.
--- NOTE | 2019-05-11 12:15 | NUR ---
P- MOOD APPERS DEPRESSED WITH FLAT AFFECT. PT FIXATED ON MEDICATIONS, REFUSING NAMENDA. I- ORIENTATION, MOOD AND BEHAVIOR ASSESSED. ASSESSED PT FOR SI/HI, INTENT OR PLAN. ASSESSED PT FOR S/S HALLUCINATIONS, PARANOIA AND/OR DELUSIONS. MEDICATIONS ADMINISTERED PER PHYSICIAN'S ORDERS. ASSISTANCE WITH ADL CARE PROVIDED NEEDED. ENCOURAGED PT TO ATTEND AND PARTICIPATE IN GAMING MILIEU GROUPS AND ACTIVITIES. R- PT IS ALERT AND ORIENTED X3. MEMORY APPEARS TO BE INTACT. RESPS EASY AND EVEN ON ROOM AIR. MOOD APPEARS DEPRESSED WITH FLAT AFFECT. SPEECH IS COHERENT, MONOTONE, ABLE TO MAKE NEEDS KNOWN WITHOUT DIFFICULTY. PT DENIES SI/HI, INTENT OR PLAN. PT DENIES HALLUCINATIONS, NO RESPONSE TO INTERNAL STIMULI NOTED. PT HAS NOT MADE ANY MENTION OF BELIEVING SHE IS OR GETTING IVP DYE OF THIS TIME IN THE SHIFT, HOWEVER; PT HAS REFUSED HER LAST 2 SCHEDULED DOSES OF NAMENDA. PT STATES "I DON'T WANT THAT NAMENDA. I JUST DON'T TRUST IT. I HAVE BEEN VERY SPECIFIC WITH MY DOCTOR ABOUT THIS NAMENDA. TOLD ME IT ONLY WORKS FOR 6 WEEKS AND THEN IT'S IF YOU NEVER TOOK IT". DEEPA MADE AWARE. PT ALSO STATING SHE HAS NOT SEEN DEEPA DESPITE HAVING JUST HAD A CONVERSATION WITH HER. DIFFICULT TO REDIRECT. PT UP TO W/C FOR LUNCH AT THIS TIME. NO DISTRESS NOTED. P- PLAN TO CONTINUE CURRENT TREATMENT, CONTINUE TO MONITOR MOOD AND BEHAVIORS, PROVIDE APPROPRIATE REORIENTATION, REDIRECTION AND 1:1 NEEDED. CONTINUE TO ENCOURAGE MEDICATION COMPLIANCE WELL GROUP ATTENDANCE AND PARTICIPATION.
--- NOTE | 2019-05-11 12:33 | NUR ---
PT MEETING WITH DEEPA [id number] AGAIN AT THIS TIME PER PT REQUEST.
--- NOTE | 2019-05-11 13:01 | NUR ---
AM GROUP/MUSIC/EXERCISE/COLOR BY NUMBER PT NOT IN ATTENDNACE AT THIS TIME DUE TO WEANTING TO REST. PT DID NOT COME TO DAYROOM UNTIL LUNCH TIME. PT WILL CONTINUE TO BE ENCOURAGED TO ATTEND AND PARTICIPATE IN FUTURE GROUP SESSIONS TO BEST OF PT ABILITY.
--- NOTE | 2019-05-11 15:07 | NUR ---
PRN MIRALAX 17GM PO GIVEN AT THIS TIME FOR CONSTIPATION - PT WITH NO DOCUMENTED BM X3 DAYS. ABDOMEN SOFT NONTENDER, +BSX4. WILL MONITOR FOR EFFECTIVENESS OF MEDICATION.
--- NOTE | 2019-05-11 15:45 | NUR ---
PT VOICING DELUSIONAL THOUGHTS THIS AFTERNOON. PT ASKED RN "WILL YOU TAKE ME TO THE ER? I NEED TO GO HAVE THIS BABY". ADVISED PT SHE WAS IN THE HOSPITAL BUT WAS NOT HAVING A BABY. REORIENTATION PROVIDED AND REALITY PRESENTATION GIVEN TO CURRENT SITUATION AND YEAR. PT STATES "OH YEAH, I GUESS I WOULDN'T BE HAVING A BABY AT MY AGE. THANK YOU FOR REMINDING ME".
--- NOTE | 2019-05-11 17:29 | NUR ---
SHIFT CHART CHECK COMPLETED.
[2019-05-11 20:32] VITALS: BP 116/62
--- NOTE | 2019-05-11 23:44 | NUR ---
NO ADVERSE BEHAVIORS NOTED. PATIENT ALERT TO SELF, PLEASANTLY CONFUSED. PT CALM, COOPERATIVE AND INTERACTIVE. DURING 1:1 PATIENT STATED SHE WAS DOING OKAY TODAY BUT CAN FEEL "DOWN IN THE DUMPS AT TIMES", WHEN ASKED WHY SHE SOMETIMES FEELS THAT WAY SHE STATED "OH I DONT KNOW, SOMETIMES YOU JUST DO, DONT YOU EVER GET THAT WAY?", SUPPORT PROVIDED. PT DENIES SI/HI, HALLUCINATIONS, OR PAIN. NO NOTED RESPONDING TO INTERNAL STIMULI. NO PARANOIA/DELUSIONS NOTED. PT MEDICATION COMPLIANT WITHOUT DIFFICULTY AFTER REVIEW. PT ASSISTED TO BED WITH X2, COMPLIANT WITH HOC. PT RESTING QUIETLY, RESPIRATIONS EASY AND REGULAR, NO SIGNS OR SYMPTOMS OF DISTRESS NOTED. PLAN IS TO CONTINUE TO MONITOR MOODS AND BEHAVIORS. PRESENT REALITY AND REORIENT NEEDED. PROVIDE 1:1 WITH SUPPORT. ENCOURAGE MEDICATION COMPLIANCE AND EDUCATE. MAINTAIN Q 15 MIN CHECKS.
--- NOTE | 2019-05-12 05:47 | NUR ---
CALLED AND UPDATED ON PT NOT VOIDING THIS SHIFT AND BLADDER SCANNED WITH RESULT OF >200, ALSO NOTIFIED THAT THIS RN ONLY RECEIVED 200CC FROM STRAIGHT CATH ON PREVIOUS SHIFT THIS RN WORKED. STATED TO WAIT AND SEE IF PATIENT VOIDS ON HER OWN AT THIS TIME. NO OTHER ORDERS RECEIEVED.
--- NOTE | 2019-05-12 06:02 | NUR ---
PATIENT OBSERVED ON Q 15 MIN CHECKS TO HAVE SLEPT APPROX 6 HOURS WITH NO AWAKENINGS OR SIGNS AND SYMPTOMS OF DISTRESS NOTED.
--- NOTE | 2019-05-12 06:33 | NUR ---
NO NOTED BM THIS SHIFT, PT RECEIVED PRN MOM 30ML AT THIS TIME DUE TO LAST DOCUMENTED BM ON 05-08-19. BOWEL SOUNDS X4. WILL CONTINUE TO MONITOR FOR EFFECTIVENESS.
--- NOTE | 2019-05-12 07:25 | NUR ---
PHYSICAL THERAPY Patient seen this am for therapy visit and was sitting up in activity room w/ at table upon therapist arrival. Patient identified by name / and reported no new c/o's this morning. OT information assistant was present for observation only during COLORER HIDES AND SKINS visit as patient repeatedly stated she can't stand for fear of falling. Patient needed MAX encouragement and therapist assurance she would not fall and agreed to transfer training. Patient instructed on safe sit to stand transfer and was transported to [facility] via w/c. Patient performed several sit to stand transfers MIN A, with B UE handrail support. Patient tolerated static stand, MIN A, demonstrating several "mini" B knee buckling episodes, but with v/c was able to self correct standing posture. Patient also ambulated GROUND INSTRUCTOR ADVANCED/MIN, plus single handrail support, 15'x 1, demonstrating very slow , unsteady gait pattern, with repeated comments of fear of falling. Patient returned to [facility] and remained in activity room at table awaiting breakfast with apolinar stephenson, under [facility] staff Supervision. Will continue per POC as tolerated, total treatment time 14 minutes. Perry Swain, COLORER HIDES AND SKINS
[2019-05-12 07:59] VITALS: BP 112/85
--- NOTE | 2019-05-12 08:00 | NUR ---
Treatment Plan meeting was held with Dr. Langley, ANJELICA Rodney, RN, AT, GLASS HANDLER-S and History Faculty Member. Plan for discharge Sun/. Pt. to retutn to [facility] at discharge.
--- NOTE | 2019-05-12 08:00 | NUR ---
Patient resting quietly with no c/o discomfort. Respirations easy and regular. Vital signs stable. No overt distress. QUINTIN RODAS
--- NOTE | 2019-05-12 08:30 | NUR ---
AND BENJY PMHNP-BC ON UNIT TO SEE PT AT THIS TIME, UPDATE GIVEN.
--- NOTE | 2019-05-12 12:32 | NUR ---
SPEECH PATHOLOGY Patient was seen for treatment this pm during lunchtime meal. Patient was alert, sitting upright in activity room feeding herself. She displayed good intake during the meal, consuming entire bowl of soup, pudding, crackers and coffee. Patient displayed adequate rate and appropriate bite size during the meal, with no cues needed. No overt oral or pharyngeal difficulty was displayed. Recommend patient remain on present diet with continued use of safe swallow precautions such as small bites/sips, chewing thoroughly, alternating liquid and solid and eating slowly. Recommend she continue to be monitored during meals to ensure safety. She has received maximum benefit from therapy and discharge is recommended at this time. Thank you for this referral. It has been a pleasure taking part in this patient's care. HIRA VALDERRAMA [facility]-SL[facility] GRINDER
--- NOTE | 2019-05-12 13:31 | NUR ---
Pt requested to speak to this senior medical writer. Pt stated that she was extremely anxious because she was going to receive ECT. Pt was clinging to this senior medical writer's hand. Comforted pt and informed her that ECT cannot be done in this hospital. Pt needed this to be confirmed to her several times before she appeared to believe it. Empathized with pt and provided support.
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
--- NOTE | 2019-05-12 17:59 | NUR ---
PM GROUP/EXERCISE/BEADING/LESIURE PT ATTENDED AND PARTICIPATED IN GROUP. PT PLEASANT AND ON TASK ENTIRE GROUP UNTIL THE END. PT DID EXERCISES, AND BEADING. AFTER BEADING PT BEGINS BECOMING NERVOUS AND WORRIED ABOUT HOW SHE IS GOING OT LEAVE. PT NOT REDIRECTABLE AT THIS TIME AND BECAME DISRUPTIVE TO PEERS. PT TAKEN TO QUIET ROOM TO CALM. PT WILL CONTINUE TO BE ENCOURAGED TO ATTEND AND PARTICIPATE IN FUTURE GROUP SESSIONS TO BEST OF PT ABILITY.
[2019-05-12 20:16] VITALS: BP 144/69
--- NOTE | 2019-05-12 20:52 | NUR ---
EVENING/STORY PT IN ATTENDNACE AN DPARTICIPATED IN DISCUSSION. PT HAD A STORY TO GO ALONG WITH EVERY FLOWER IN THE BOOK. PT PLEASANT AND OFF TASK AT TIMES BUT EASILY REDIRECTED THIS EVENING. PT EXPRESSED NO HALLUCINATIONS AN DWILL CONTINUE TO ATTEND ANDPARTICIPATE IN FUTURE GROUP SESSIONS TO BEST OF PT ABILITY.
--- NOTE | 2019-05-13 02:08 | NUR ---
P-CONFUSION, LABILE, TEARFUL I-REORIENT AND PRESENT REALITY. PROVIDE 1:1 WITH THERAPEUTIC INTERVENTIONS. ENCOURAGE MEDICATION COMPLIANCE AND EDUCATE. MONITOR SLEEP. R- PATIENT ALERT TO PERSON, APPROX TO PLACE. PT LABILE AT BEGINNING OF SHIFT, RANGING FROM CALM TO TEARFUL. PT WANTING TO CALL HER PARENTS AND ALSO THINKING A BABY IS IN THE HOSPITAL WITH PNEUMONIA AND NEEDS HER HELP. PT RECEPTIVE TO REDIRECTION AND REALITY PRESENTATION WITH ST/LT MEMORY DEFICITS NOTED. PT STATED "YOU KNOW, I HAD A DREAM THAT I WAS WITH A BABY, SO I THOUGHT I HAD A BABY, THAT DOESNT MAKE SENSE, IM 84 YEARS OLD, CRAZY HOW MY MIND WORKS SOMETIMES". PT DENIES SI/HI, HALLUCINATIONS, OR PAIN. MEDICATION COMPLIANT WITHOUT DIFFICULTY AFTER REVIEW. PT ABLE TO MAKE NEEDS KNOWN, COMPLIANT WITH HOC, X2 ASSIST. PT CONTINENT OF URINE X1 SO FAR THIS SHIFT. PT LAYING DOWN WITH EYES CLOSED, RESPIRATIONS EASY AND REGULAR, NO SIGNS OR SYMPTOMS OF DISTRESS NOTED. P-CONTINUE TO MONITOR MOOD AND BEHAVIORS. PROVIDE 1:1 WITH SUPPORT. ENCOURAGE MEDICATION COMPLIANCE AND EDUCATE. MAINTAIN Q 15 MIN CHECKS.
--- NOTE | 2019-05-13 04:02 | NUR ---
24 HOUR CHART CHECK COMPLETED.
--- NOTE | 2019-05-13 05:30 | NUR ---
PT SLEPT 4+ HOURS
--- NOTE | 2019-05-13 06:38 | NUR ---
PATIENT ACCUSITORY TOWARD STAFF THIS AM, STATING THAT HER HAIR HAS ISNT BEING BRUSHED DESPITE JUST BEING DONE BY X2 STAFF. UNABLE TO REDIRECT AT THIS TIME.
--- NOTE | 2019-05-13 06:46 | NUR ---
PATIENT INCONTINENT OF URINE THIS AM, CARE PROVIDED.
--- NOTE | 2019-05-13 07:30 | NUR ---
PHYSICAL THERAPY Patient seen this am for therapy visit and was sitting up in activity room Lili chair upon therapist arrival. Patient identified by name / and was very pleasant this morning. Patient instructed on LE therex and was able to perform seated B LE therex, all planes, 2 x 10 reps each without c/o to increase LE strength. Patient demonstrated decreased L knee extension AAROM secondary to increased joint stiffness. Patient remained in Lili chair with body alarm at table awaiting breakfast, under [facility] staff Supervision. Will continue per POC as tolerated, total treatment time 15 minutes. Perry Swain, JAVASCRIPT ENGINEER
[2019-05-13 08:03] VITALS: BP 148/81
--- NOTE | 2019-05-13 09:04 | NUR ---
Patient eating breakfast in dining room with no c/o discomfort. Respirations easy and regular. Vital signs stable. No overt distress. ELISSA ORTIZ
--- NOTE | 2019-05-13 09:09 | NUR ---
pt is alert, oriented x 4. pleasant, cooperative. pt is discussing grandchildren who she states are 4,5,7, and 14. states she cannot wait to get out of here and be reunited with them. pt states she is eating well and sleeping well. currently in dining room with peers, somewhat withdrawn to self. will verbally interact when approached. pt is medication compliant without difficulty, education provided. pt encouraged to attend group therapy for socialization and support. q15 min monitoring per policy for safety.
--- NOTE | 2019-05-13 11:44 | NUR ---
KRYS GROUP/EXERCISE AND ASHOK PT ATTENDED MORNING GROUP THERAPY AND PARTICIPATED IN ALL ACTIVITIES. PT EXPRESSED NO A.V. HALLUCINATIONS WHILE IN GROUP. PT IS VERY CONFUSED AND BECOMES IRRITATED WITH REDIRECTION. PT BELIEVES THAT SHE MUST GET TO THE LAB ONE MINUTE, GO GET HER PURSE FOR MONEY FOR HER SISTER, CHECK ON HER PATIENTS, ETC. THE NEXT MINUTE. PT IS NOT REDIRECTABLE SHE HAS AN ANSWER FOR EVERYTHING.
--- NOTE | 2019-05-13 15:36 | NUR ---
PM GROUP PT WAS PRESENT FOR AFTERNOON GROUP THERAPY RECLINED IN A ROCIO CHAIR SLEEPING. PT DID NOT WAKE DURING GROUP
[2019-05-13 19:38] VITALS: BP 134/68
--- NOTE | 2019-05-13 22:06 | NUR ---
P: NON COMPLIANT WITH MEDICATION, I: REDIRECT, REAPPROACH, REEDUCATE IN REFERENCE TO MEDICAITON IMPROTANCE R: PT TOLD STAFF TO LEAVE HER ALONE, REFUSED ALL ASPECTS OF REDIRECTION TO MEDICATION. PT WAS UNSURE IF WATER SAFE FROM THE TAP, DIDN'T BELIEVE THE DOCTOR WANTED HER TO TAKE ALL OF THE MEDICATIONS. PT REFUSED THIS EVENING UNABLE TO REDIRECT P: CONTINUE TO MONITOR, REDIRECT NEEDED, REORIENT TO REALITY. MONITOR 15 MIN CHECKS AND MEDICATION EFFECTIVENESS NO SI/HI NOTED, POTENTION FOR DELUSIONS DUE TO CONFUSIONS. PT REFUSED TO DISCUSS REORIENT ATION AT THIS TIME
--- NOTE | 2019-05-14 00:53 | NUR ---
24 HR chart check completed.
--- NOTE | 2019-05-14 06:04 | NUR ---
Patient slept approx. 6.5 hours throughout shift. Q 15 minute safety checks continued and maintained.
--- NOTE | 2019-05-14 07:35 | NUR ---
PHYSICAL THERAPY Patient seen this am for therapy visit and was sitting up in activity room Lili chair upon therapist arrival. Patient identified by name / and was very pleasant this morning. OT respiratory therapy assistant was present for observation only this session as patient transfers sit to stand at rail in hallway, MOD A x 2, B UE support and tolerated approx 2 minutes static stand before c/o of 7/10 L knee pain. Patient also able to ambulate 15'x 1, DRUG ABUSE COUNSELOR/MIN plus single handrail support, demonstrating very cautious gait pattern with uneven stride. Patient fatigues quickly, needed Lili chair follow and returned to activity room in Lili chair with lap tray and body alarm for safety. Patient remained in activity room awaiting breakfast under [facility] staff Supervision. Will continue per POC as tolerated, total treatemnt time 14 minutes. Perry Swain, COMPRESSED AIR PILE DRIVER OPERATOR
--- NOTE | 2019-05-14 08:00 | NUR ---
Treatment Plan meeting was held with ANJELICA Rodney, RN, AT, PADDED PRODUCTS FINISHER-S and Talent Assistant. Plan for discharge /Sunday depending on transportation availability. Pt. to return to [facility].
[2019-05-14 08:01] VITALS: BP 116/89
--- NOTE | 2019-05-14 11:44 | NUR ---
AM GROUP PT DID NOT ATTEND MORNING GROUP THERAPY. PT WAS IN BED RESTING.
--- NOTE | 2019-05-14 13:12 | NUR ---
Spoke with Meche MAR at [facility] concerning Discharge Plans. Meche States that due to Transportation issues Sunday is more appropriate for discharge with milk pickup truck driver time 10:[address] Langley in a.m.
--- NOTE | 2019-05-14 14:41 | NUR ---
PT INTERMITTENTLY CONFUSED THIS SHIFT. PT ASKING TO GO TO [facility], LOOKING FOR THE ELEVATOR TO HER OFFICE. PT REORIENTED AND REDIRECTED. PT RECEPTIVE TO REDIRECTION, CALMS WITH MUCH 1:1 AND EDUCATION. WILL CONTINUE TO REORIENT, PRESENT REALITY, AND REDIRECT APPROPRIATE. WILL CONTINUE TO MONITOR Q15 MIN PER POLICY FOR SAFETY.
--- NOTE | 2019-05-14 15:45 | NUR ---
PM GROUP PT ATTENDED AFTERNOON GROUP THERAPY AND PARTICIPATED TO THE BEST OF HER ABILITY. PT WAS VERY CONFUSED AND WAS MAKING OFF THE WALL STATEMENTS AND LOOKING FOR THINGS THAT WERE NOT THERE. PT WAS NOT AWARE OF USING THE WRONG END OF THE PAINTBRUSH AND HAD DIFFICULTY FOLLOWING SIMPLE DIRECTIONS.
--- NOTE | 2019-05-14 15:54 | NUR ---
Shift chart check completed.
[2019-05-14 17:02] VITALS: BP 138/80
[2019-05-14 19:51] VITALS: BP 118/77
--- NOTE | 2019-05-15 00:14 | NUR ---
24 HR chart check completed.
--- NOTE | 2019-05-15 00:48 | NUR ---
P-CONFUSION I-REORIENT, ALLOW PT TO VENT & PROVIDE EMOTIONAL SUPPORT, ADMINISTER MEDS, MONITOR SLEEP R-ALERT & ORIENTED TO PERSON, PLACE & TIME WITH MEMORY GAPS. PLEASANT INTERACTIONS. STATED SHE FEELS, "GOOD BUT TIRED". ATE SNACK. COMPLAINT TAKING MEDS WHOLE. 2 STAFF ASSISTS. CONTINENT OF URINE. P-CONTINUE TO MONITOR, PROVIDE PHYSICAL & EMOTIONAL SUPPORT NEEDED
--- NOTE | 2019-05-15 05:06 | NUR ---
PT HAS SLEPT PAST 2144
--- NOTE | 2019-05-15 06:12 | NUR ---
PT CONFUSED THIS AM. STATED SHE HAS BEEN "OUT DRINKING ALL NIGHT & IS WAITING FOR LAST CALL." CAME TO NURSES STATION & ASK IF SHE COULD MAKE A PHONE CALL TO HER MOM & DAD TO COME & GET HER. STATED SHE IS 23.
[2019-05-15 08:00] VITALS: BP 111/82
--- NOTE | 2019-05-15 08:00 | NUR ---
Treatment plan meeting was held with Dr. Langley, RN, AT, DIRECTOR DIGITAL STRATEGY-S and Gang Bore Operator in attendance. Plan for discharge Sunday. Pt. is to be transported by [facility] Van with continuous pickling line pickler helper 10:00 a.m.
--- NOTE | 2019-05-15 08:25 | NUR ---
PHYSICAL THERAPY Patient seen this am for therapy visit and was sitting up in her w/c at table in activity room upon therapist arrival. Patient identified by name / and fairly talkative this morning following Dr Langley visit. Several [facility] staff were present this session for observation only as patient transfers sit to stand, MIN A, and ambulates along rail in hallway, MIN/CHINCHILLA FARMER, including single handrail support, while demonstrating very unsteady, cautious gait pattern, 20'x 1. Patient reported mild c/o of B knee pain during gait ex and stated several times " I can't walk " even though she was at the time. Patient also needed w/c follow secondary to history of sitting down without warning and quick onset of fatigue. Patient returned to w/c, transported back to activity room and remained under [facility] staff Supervision. Will continue per POC as tolerated, total treatment time 14 minutes. Perry Swain, GAS WELDING MACHINE OPERATOR
--- NOTE | 2019-05-15 11:40 | NUR ---
DR GRIDER ON UNIT TO SEE PATIENT
--- NOTE | 2019-05-15 14:58 | NUR ---
P-CONFUSION, TEARFUL, DEPRESSED MOOD I-REDIRECTION WITH 1:1 THERAPEUTIC INTERVENTIONS AND PRESENT REALTIY. EDUCATE AND ENCOURAGE MEDICATION COMPLIANCE R-PATIENT MEDICATION COMPLIANT EXCEPT FOR REFUSING NAMENDA. PATIENT PREOCCUPIED WITH MEDICATION, TALKING TO HER DAUGHTER, AND CALLING HER PRIMARY PHYSICIAN. ATTEMPTS MADE FOR DIVERSIONAL ACTIVITIES AND OTHER 1:1 INTERVENTIONS. PATIENT WITH SHORT TERM AND RAILROAD CAR CLEANING SUPERVISOR MEMORY DEFICITS AND TEARFUL AT TIMES WHEN REALIZING WHEN FORGETTING THINGS. PATIENT WITH DEPRESSED MOOD AND VERBALIZING TO STAFF "PLEASE HELP ME. I GOT TO GET HOME FOR MY APPOINTMENT TOMORROW". P-CONTINUE TO ENCOURAGE MEDICATION COMPLAINCE, CONTINUE TO PRESENT REALITY, ENCOURAGE GROUP THERAPY WHILE AWAKE
--- NOTE | 2019-05-15 15:47 | NUR ---
PM GROUP PT WAS PRESENT AT THE START OF AFTERNOON THERAPY BUT WAS OBSESSED WITH SOMEONE "TAKING HER DOWN TO THE ELEVATOR" SO THAT SHE COULD GO HOME. PT COULD NOT BE REDIRECTED AND WAS TAKEN BY [facility] OUT OF THE DAYROOM. PT DID NOT RETURN
[2019-05-15 19:47] VITALS: BP 128/72
--- NOTE | 2019-05-15 19:57 | NUR ---
24 HR chart check completed.
--- NOTE | 2019-05-15 21:46 | NUR ---
P-CONFUSION I-REORIENT, REDIRECT, ALLOW PT TO VENT & PROVIDE EMOTIONAL SUPPORT, ADMINISTER MEDS, MONITOR SLEEP R-ALERT & ORIENTED TO PERSON & PLACE WITH MEMORY GAPS. PLEASANT INTERACTIONS. ATE SNACK. INTERMITTENT CONFUSION & REQUIRES REDIRECTION. COMPLAINT TAKING MEDS CRUSHED & MIXED IN APPLESAUCE. 2 STAFF ASSISTS. CONTINENT OF URINE. P-CONTINUE TO MONITOR, PROVIDE PHYSICAL & EMOTIONAL SUPPORT NEEDED
--- NOTE | 2019-05-16 05:54 | NUR ---
PT HAS SLEPT INTERMITTENTLY FOR APPROX 3 HOURS. NOTED TO TALK OUTLOUD AT TIMES TO UNSEEN OTHERS. SLEPT APPX 3 HOURS
[2019-05-16 07:57] VITALS: BP 123/87
--- NOTE | 2019-05-16 08:00 | NUR ---
Treatment Plan meeting was held with ANJELICA Rodney RN, AT, MUSEUM INFORMATICS SPECIALIST-S and Supervisor Real Estate Office. Plan for discharge today. Pt. will return to [facility]. Pt. will receive Mental Health Follow up at facility with Dr. Heard and Primary Care Follow up at facility. Transportation has been arranged for 10:00 supervisor picking crew by facility Van.
[2019-05-16 08:17] LABS: INTERNATIONAL NORM RATIO 1.2 (2.0-3.5)
--- NOTE | 2019-05-16 08:48 | NUR ---
SPOKE WITH DR BOYD RE: PT DISCHARGE FOR THIS MORNING AND MEDICAL MEDS NEEDING COMPLETED. NO FURTHER ORDERS AT THIS TIME.
[2019-05-16] MEDS ORDERED: MEMANTINE HCL10 MG PO (08:53)
[2019-05-16] MEDS ORDERED: EXELON13.3 MG/21 T (08:53)
[2019-05-16] MEDS ORDERED: MIRTAZAPINE15 M2 PO (08:53)
[2019-05-16] MEDS ORDERED: PALIPERIDONE ER6 MG PO (08:53)
[2019-05-16] MEDS ORDERED: ATARAX,VISTARIL50 MG PO (08:53)
[2019-05-16] MEDS ORDERED: TRIHEXYPHENIDYL2 M3 PO (08:53)
--- NOTE | 2019-05-16 09:08 | NUR ---
REPORT GIVEN TO NURSE AT [facility]. THIS NURSE WAS INFORMED THAT THEIR HUMAN RESOURCES SUPPORT SPECIALIST WAS ON THE WAY TO EMERGENCY RESPONSE TECHNICIAN PATIENT.
[2019-05-16] MEDS ORDERED: COUMADIN2.5 M1 PO (09:39)
--- NOTE | 2019-05-16 10:14 | NUR ---
P-CONFUSION I-REDIRECTION WITH 1:1 THERAPEUTIC INTERVENTIONS AND PRESENT REALTIY. EDUCATE AND ENCOURAGE MEDICATION COMPLIANCE R-PATIENT MEDICATION COMPLIANT. 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 PATIENT WITH NO HALLUCINATIONS OR DELUSIONS. PATIENT WITH NO SUICIDAL OR HOMICIDAL IDEATIONS. P-CONTINUE TO ENCOURAGE MEDICATION COMPLAINCE, CONTINUE TO PRESENT REALITY, ENCOURAGE GROUP THERAPY WHILE AWAKE PATIENT DISCHARGED FROM THE UNIT AT THIS TIME. PATIENT'S VITAL SIGNS STABLE. PATIENT RECEIVED ALL BELONGINGS AT DISCHARGE. PATIENT TRANSPORTED OFF UNIT VIA WHEELCHAIR. ATTENDANT X 1 AND MENTAL HEALTH WORKER X 1. PATIENT VOICED NO CONCERNS AT TIME OF DISCHARGE
--- NOTE | 2019-05-16 10:28 | NUR ---
Discharge Paperwork Faxed to [facility] Attn: Meche. Information provided in Dishcharge Packet with Dr. Langley Office Information and Contacts.
--- NOTE | 2019-05-16 12:03 | NUR ---
Patient discharged today to [facility]. Follow-up will be with Dr Heard, visiting psychiatrist. DON at [facility] did request information for [facility], as they are considering having pt's psychiatric care transferred. While at [facility], pt's paranoid delusions lessened. Pt's anxiety also lessened. Pt continued to be confused. Pt did participate in programming.
--- NOTE | 2019-05-16 16:33 | NUR ---
PHYSICAL THERAPY CO-SIGN I approve of the Physical Therapy notes written above. Jaylyn Flores PT
== END 2019-05-16 10:14 | disposition home or self-care (01) | DRG 885 ==
LOC: 3N 14:44
PROVIDERS: Family Medicine; Internal Medicine; Student in an Organized Health Care Education/Training Program; ADMIT Psychiatry & Neurology Psychiatry
DX: F25.1 Schizoaffective disorder, depressive type (principal); E44.1 Mild protein-calorie malnutrition; F03.91 Unspecified dementia, unspecified severity, with behavioral disturbance; I82.509 Chronic embolism and thrombosis of unspecified deep veins of unspecified lower extremity; B37.89 Other sites of candidiasis; K52.9 Noninfective gastroenteritis and colitis, unspecified; N18.3 Chronic kidney disease, stage 3 (moderate); E66.09 Other obesity due to excess calories; K21.9 Gastro-esophageal reflux disease without esophagitis; I12.9 Hypertensive chronic kidney disease with stage 1 through stage 4 chronic kidney disease, or unspecified chronic kidney disease; G40.909 Epilepsy, unspecified, not intractable, without status epilepticus; G25.81 Restless legs syndrome; N32.81 Overactive bladder; R32 Unspecified urinary incontinence; Z82.49 Family history of ischemic heart disease and other diseases of the circulatory system; Z88.0 Allergy status to penicillin; Z88.8 Allergy status to other drugs, medicaments and biological substances; Z68.30 Body mass index [BMI] 30.0-30.9, adult; Z91.040 Latex allergy status; Z86.73 Personal history of transient ischemic attack (TIA), and cerebral infarction without residual deficits; Z83.3 Family history of diabetes mellitus; Z79.899 Other long term (current) drug therapy; Z79.01 Long term (current) use of anticoagulants